=== PATIENT | female | born 1970 | race Caucasian/White ===

== ENCOUNTER 2017-06-11 11:47 | Emergency (ER) | payer MEDICAID ==
[~2017-06-11] VITALS: Ht 149.9 cm; Wt 70.0 kg
[~2017-06-11 11:47] MED LIST: CYCL-1 PO; FAMO-128 PO
[2017-06-11 13:27] VITALS: BP 111/65
== END 2017-06-11 14:03 | disposition home or self-care (01) ==
LOC: ER 11:47
DX: J06.9 Acute upper respiratory infection, unspecified (principal); E11.9 Type 2 diabetes mellitus without complications; Z88.1 Allergy status to other antibiotic agents
CPT/HCPCS: 99283

== ENCOUNTER 2018-07-08 11:34 | Emergency (ER) | payer MEDICAID ==
[~2018-07-08] VITALS: Ht 167.6 cm; Wt 72.7 kg
[2018-07-08] MEDS ORDERED: ketorolac tromethamine 15mg/ml inj. IM ONE (12:15)
[2018-07-08] MEDS ORDERED: triamcinolone acetonide 40mg/ml inj IM ONE (12:15)
[2018-07-08] MEDS ORDERED: GABA-530 PO (12:48)
[2018-07-08] MEDS ORDERED: TRAM50TA2 PO (12:48)
[2018-07-08] MEDS ORDERED: CELE-193 PO (12:48)
[2018-07-08 13:08] VITALS: BP 142/75
== END 2018-07-08 13:10 | disposition home or self-care (01) ==
LOC: ER 11:35
DX: M54.2 Cervicalgia (principal); M62.838 Other muscle spasm; E11.9 Type 2 diabetes mellitus without complications; Z98.890 Other specified postprocedural states; Z88.1 Allergy status to other antibiotic agents; Z79.2 Long term (current) use of antibiotics; Z79.899 Other long term (current) drug therapy
CPT/HCPCS: 96372; 99283; J1885; J3301

== ENCOUNTER 2020-01-31 15:45 | Emergency (ER) | payer MEDICAID ==
[~2020-01-31] VITALS: Ht 149.9 cm; Wt 73.0 kg
[~2020-01-31 15:45] MED LIST changes: +GABA-530 PO
[2020-01-31 16:01] VITALS: BP 132/83
[2020-01-31] MEDS ORDERED: PENI250T2 PO (16:56)
== END 2020-01-31 17:15 | disposition home or self-care (01) ==
LOC: ER 15:45
DX: K04.7 Periapical abscess without sinus (principal); E78.00 Pure hypercholesterolemia, unspecified; I10 Essential (primary) hypertension; E11.9 Type 2 diabetes mellitus without complications; Z88.1 Allergy status to other antibiotic agents; Z79.899 Other long term (current) drug therapy
CPT/HCPCS: 41800; 99284

== ENCOUNTER 2020-12-14 10:03 | Emergency (ER) | payer MEDICAID ==
[2020-12-14] MEDS ORDERED: ketorolac trometh. 30mg/ml inj. IM ONE (10:30)
[2020-12-14] MEDS ORDERED: ORPH100T2 PO (10:55)
[2020-12-14] MEDS ORDERED: HYDR-3972 PO (10:55)
== END 2020-12-14 11:18 | disposition home or self-care (01) ==
LOC: ER 10:03 → EEVIPCON 10:03 → ER 11:18
DX: M25.512 Pain in left shoulder (principal); M54.2 Cervicalgia; M79.10 Myalgia, unspecified site; E78.00 Pure hypercholesterolemia, unspecified; I10 Essential (primary) hypertension; E11.9 Type 2 diabetes mellitus without complications; Z88.1 Allergy status to other antibiotic agents; Z79.899 Other long term (current) drug therapy; X58.XXXA Exposure to other specified factors, initial encounter; Y93.89 Activity, other specified; Y92.89 Other specified places as the place of occurrence of the external cause; Y99.8 Other external cause status
CPT/HCPCS: 96372; 99283; J1885

== ENCOUNTER 2020-12-19 18:49 | Emergency (ER) | payer MEDICAID ==
[~2020-12-19] VITALS: Ht 149.9 cm; Wt 75.0 kg
[~2020-12-19 18:49] MED LIST changes: +HYDR-3972 PO; +ORPH100T2 PO
[2020-12-19] MEDS ORDERED: diazepam 5mg tablet PO ONE (19:30)
[2020-12-19] MEDS ORDERED: ketorolac tromethamine 15mg/ml inj. IM ONE (19:30)
[2020-12-19] MEDS ORDERED: DIAZ5TAB22 PO (20:03)
[2020-12-19] MEDS ORDERED: DEXA4TAB67 PO (20:03)
[2020-12-19 20:26] VITALS: BP 160/90
== END 2020-12-19 20:28 | disposition home or self-care (01) ==
LOC: ER 18:50 → EEVIPCON 18:50 → ER 20:28
DX: M54.2 Cervicalgia (principal); M25.512 Pain in left shoulder; E78.00 Pure hypercholesterolemia, unspecified; I10 Essential (primary) hypertension; E11.9 Type 2 diabetes mellitus without complications
CPT/HCPCS: 96372; 99283; J1885

== ENCOUNTER 2022-02-26 21:46 | Inpatient (IN) | payer MEDICAID, OTHER ==
[~2022-02-26] VITALS: Ht 142.2 cm; Wt 75.0 kg
[~2022-02-26 21:46] MED LIST changes: +DEXA4TAB67 PO; -HYDR-3972 PO
[2022-02-26 23:52] LABS: BASOPHILS # (AUTO) 0.1 X10'3 (0-0.2); BASOPHILS % (AUTO) 0.8 % (0-1); EOSINOPHILS # (AUTO) 0.3 X10'3 (0-0.9); EOSINOPHILS % (AUTO) 2.9 % (0-6); HEMATOCRIT 36.8 % (35.0-45.0); HEMOGLOBIN 12.4 g/dl (12.0-16.0); LYMPHOCYTES # (AUTO) 2.6 X10'3 (1.1-4.8); LYMPHOCYTES % (AUTO) 22.5 % (21-51); MEAN CORPUSCULAR HEMOGLOBIN 29.2 PG (27.0-31.0); MEAN CORPUSCULAR HGB CONC 33.8 g/dL (33.0-36.5); MEAN CORPUSCULAR VOLUME 86.3 FL (78-98); MEAN PLATELET VOLUME 7.5 FL (7.4-10.4); MONOCYTES # (AUTO) 0.9 X10'3 (0-0.9); MONOCYTES % (AUTO) 7.4 % (2-12); NEUTROPHILS # (AUTO) 7.6 X10'3 (1.8-7.7); NEUTROPHILS % (AUTO) 66.4 % (42-75); PLATELET COUNT 352 X10'3 (140-440); RED BLOOD COUNT 4.26 X10'6 (4.20-5.60); RED CELL DISTRIBUTION WIDTH 13.2 % (11.5-14.5); WHITE BLOOD COUNT 11.5 X10'3 (4.5-11.0)
[2022-02-27] VITALS (20 sets, daily range): BP systolic 116–171; BP diastolic 62–91
[2022-02-27] MEDS ORDERED: ondansetron/PF 4mg/2ml inj IM ONE
[2022-02-27 00:11] LABS: ALANINE AMINOTRANSFERASE 24 U/L (12-78); ALBUMIN 3.7 G/DL (3.4-5.0); ALKALINE PHOSPHATASE 78 IU/L (46-116); ANION GAP 5 (8-16); ASPARTATE AMINO TRANSFERASE 13 U/L (10-37); BILIRUBIN,TOTAL 0.4 MG/DL (0.1-1.0); BLOOD UREA NITROGEN 9 MG/DL (7-18); BUN/CREATININE RATIO 14.8 (6.6-38.0); CALCIUM 9.7 MG/DL (8.5-10.1); CHLORIDE 102 MMOL/L (99-107); CREATININE 0.61 MG/DL (0.40-0.90); GLUCOSE 196 MG/DL (70-104); LIPASE < 50 U/L (73-393); POTASSIUM 3.9 MMOL/L (3.5-5.1); SODIUM 137 MMOL/L (135-145); TOTAL CARBON DIOXIDE 29.6 MMOL/L (24-32); TOTAL PROTEIN 7.4 G/DL (6.4-8.2); eGFR > 90 ML/MIN
[2022-02-27] MEDS ORDERED: morphine 4 MG/ML inj SYRINge IV ONE ×2 (01:20)
[2022-02-27] MEDS ORDERED: piperacillin/tazo 3.375gm/50ml 50 ML IV ONE (01:30)
[2022-02-27] MEDS ORDERED: magnesium 4gm in 100ml NS 100 ML IV PRN (03:25)
[2022-02-27] MEDS ORDERED: ondansetron/PF 4mg/2ml inj IV PRN ×2 (03:25→11:25)
[2022-02-27] MEDS ORDERED: potassium Cl 20 mEq SR tablet PO PRN ×2 (03:25)
[2022-02-27] MEDS ORDERED: magnesium Cl slow-release 64mg tablet PO PRN (03:25)
[2022-02-27] MEDS ORDERED: HYDROcodone/acetaminophen 5mg/325mg tablet PO PRN ×2 (03:25→13:00)
[2022-02-27] MEDS ORDERED: acetaminophen 325mg tablet PO PRN ×2 (03:25)
[2022-02-27] MEDS ORDERED: potassium Cl 40MEQ/1/2NS 520ml 520 ML IV PRN (03:25)
[2022-02-27] MEDS: normal saline 1000ml 1,000 ML IV SCH ×3 (03:25→23:49)
[2022-02-27] MEDS ORDERED: morphine 2 MG/ML inj. syringe IV PRN ×2 (03:25→11:25)
[2022-02-27 03:44] LABS: URINE HCG NEGATIVE (NEG)
[2022-02-27 03:46] LABS: CLARITY,URINE CLEAR (Clear); COLOR,URINE STRAW (Yellow); GLUCOSE, URINE NEGATIVE (Neg); KETONES,URINE NEGATIVE (Neg); LEUKOCYTE ESTERASE ,URINE NEGATIVE (Neg); NITRITES, URINE NEGATIVE (Neg); OCCULT BLOOD,URINE TRACE-INTACT (Neg); PH,URINE 7.5 (4.8-8.0); PROTEIN,URINE NEGATIVE (Neg); UROBILINOGEN,URINE 0.2 E.U/dL (0.2-1.0)
[2022-02-27] MEDS ORDERED: MESSAGE TO PHARMACY PO ONE (03:50)
[2022-02-27] MEDS ORDERED: DEXTROSE 15 GM of carb/4 tabs (each vial/BOTTLE has 4 tablets) PO PRN ×2 (03:50)
[2022-02-27] MEDS ORDERED: insulin Lispro (HumaLOG) vial - multi-dose SQ SCH (03:50)
[2022-02-27] MEDS ORDERED: glucagon, human recombinant 1mg kit SUBCUT PRN (03:50)
[2022-02-27] MEDS ORDERED: dextrose 50%-water 50ml dispensing syringe IV PRN ×2 (03:50)
[2022-02-27 03:52] LABS: BACTERIA,URINE FEW /HPF (Neg); SQUAMOUS EPITHELIAL CELL,UR FEW /LPF (FEW); UA COLLECTION TYPE CLN CATCH MIDSTREAM; WBC,URINE NONE SEEN /HPF (0-4)
[2022-02-27] MEDS: HYDROcodone/acetaminophen 10/325mg tab PO PRN ×3 (04:31→15:42)
[2022-02-27] MEDS: piperacillin/tazo 3.375gm/50ml 50 ML IV SCH ×3 (07:56→23:50)
[2022-02-27] MEDS: heparin, porcine 5000 units/ml vial SQ SCH ×2 (07:57→20:19)
[2022-02-27] MEDS: morphine 2 MG/ML inj. syringe IV PRN ×3 (07:58→23:18)
[2022-02-27 08:43] LABS: CHOL/HDL RATIO 2.6 (0.00-4.99); CHOLESTEROL 124 MG/DL (0-200); HDL CHOLESTEROL 47 MG/DL (35-60); LDL CHOLESTEROL 65 MG/DL (50-100); TRIGLYCERIDES 50 MG/DL (20-135)
[2022-02-27] MEDS ORDERED: INDOCYANINE GREEN 25 MG/10 ML VIAL IV STA (10:17)
--- NOTE | 2022-02-27 10:33 | NUR ---
Patient in room ED 6. I have received report from LACE CUTTER and had the opportunity to ask questions and assume patient care.
[2022-02-27] MEDS ORDERED: LIDOcaine 1% 30ml preserv. free vial ONE (11:02)
--- NOTE | 2022-02-27 11:24 | NUR ---
PATIENT ARRIVED TO THE FLOOR STARTED PATIENT ON THE SURGICAL FLUID FOR OR, PATIENTS VITALS TAKEN AT THIS TIME, AND BLOOD GLUCOSE WAS ALSO TAKEN . ALL RESULTS AND RELEVANT INFORMATION WAS REPORTED TO THE MUSIC ENGRAVER AT THIS TIME.
[2022-02-27] MEDS ORDERED: acetaminophen 1,000mg/100ml IV 100 ML IV PRN (11:25)
[2022-02-27] MEDS ORDERED: hydrALAZINE 20mg/ml inj. IV PRN (11:25)
[2022-02-27] MEDS ORDERED: meperidine/PF 25mg/ml syringe IV PRN ×2 (11:25)
[2022-02-27] MEDS ORDERED: proCHLORperazine 10 MG/2 ml inj IV PRN (11:25)
[2022-02-27] MEDS ORDERED: ringers solution, lacted 1,000 ML IV SCH (11:25)
[2022-02-27] MEDS ORDERED: labetalol 20mg/4ml (5mg/ml) syringe IV PRN (11:25)
[2022-02-27] MEDS ORDERED: sevoflurane 250ml liquid IH ONE (11:47)
[2022-02-27] MEDS ORDERED: midazolam 1 mg/ML 2ml injection ONE (11:58)
[2022-02-27] MEDS ORDERED: fentaNYL /PF 50mcg/ml 5ml ampule ONE (12:01)
[2022-02-27] MEDS ORDERED: SITA100T15 PO (12:26)
[2022-02-27] MEDS ORDERED: BUPIVAcaine/PF 2.5 mg/ml (0.25%) 30ml vial IJ ONE (12:26)
[2022-02-27] MEDS ORDERED: METF-438 PO (12:26)
[2022-02-27] MEDS ORDERED: LISI5TAB22 PO (12:26)
[2022-02-27] MEDS ORDERED: ATOR40TA72 PO (12:26)
[2022-02-27] MEDS ORDERED: LIDOcaine 2% (20mg/ml) 5ml vial ONE (12:45)
[2022-02-27] MEDS ORDERED: dexamethasone sod phosphate 4mg/ml inj. ONE (12:45)
[2022-02-27] MEDS ORDERED: propofol inj 20 ML IV ONE (12:45)
[2022-02-27] MEDS ORDERED: rocuronium 10mg/ml inj IV ONE (12:45)
[2022-02-27] MEDS ORDERED: ondansetron/PF 4mg/2ml inj ONE (12:46)
[2022-02-27] MEDS ORDERED: glycopyrrolate 0.2mg/ml inj ONE (12:57)
[2022-02-27] MEDS ORDERED: neostigmine methylsulfate 1 MG/ML 10ml vial ONE (12:57)
[2022-02-27] MEDS ORDERED: naloxone 0.4 mg/ml inj IV PRN (13:00)
[2022-02-27] MEDS ORDERED: HYDROcodone/acetaminophen 10/325mg tab PO PRN (13:00)
--- NOTE | 2022-02-27 13:16 | NUR ---
Received from OR via HOSPITAL BED , accompanied by Anesthesiologist DR MELENDEZ and report given by Anesthesiolgist. PT PRESENTS WITH 20G RIGHT AC, ABD DRESSING CDI, VSS. Addendum: 02/27/22 at 1329 by Ofelia Hillman RN, RN Amended: Links added.
[2022-02-27] MEDS: meperidine/PF 25mg/ml syringe IV PRN ×3 (13:25→13:48)
--- NOTE | 2022-02-27 13:26 | NUR ---
Report called to receiving nurse EVIE RAMON. Transferred via HOSPITAL BED, TO ROOM 340B. BED IN LOW LOCKED POSITION, PT GIVEN CALL LIGHT AND HOOKED UP TO MONITOR. EVIE RAMON NOTIFIED BG 159. Belongings WERE LEFT IN PT ROOM 340B. Special Issues communicated to receiving nurse. Addendum: 02/27/22 at 1434 by Ofelia Hillman RN RN Amended: Links added.
[2022-02-27] MEDS: morphine 4 MG/ML inj SYRINge IV PRN ×2 (13:40→14:06)
--- NOTE | 2022-02-27 14:39 | NUR ---
Patient just arrived to floor after receiving report from Ofelia RAMON, patient made familiar with room and family is at bedside at this time. Reviewing orders at this time.
--- NOTE | 2022-02-27 18:05 | NUR ---
Problems reprioritized. Patient report given, questions answered & plan of care reviewed with Shakeel RAMON.
[2022-02-27] MEDS ORDERED: temazepam 15mg capsule PO PRN (21:00)
[2022-02-27] MEDS: insulin glargine (Lantus) pen - multi-dose SQ SCH (21:22)
[2022-02-28] MEDS ORDERED: morphine 2 MG/ML inj. syringe IV PRN (01:50)
[2022-02-28] MEDS: HYDROcodone/acetaminophen 10/325mg tab PO PRN (05:04)
[2022-02-28 05:57] LABS: BASOPHILS % (AUTO) 0.1 % (0-1); EOSINOPHILS % (AUTO) 0 % (0-6); HEMATOCRIT 35.7 % (35.0-45.0); HEMOGLOBIN 11.9 g/dl (12.0-16.0); LYMPHOCYTES # (AUTO) 1.4 X10'3 (1.1-4.8); LYMPHOCYTES % (AUTO) 10.3 % (21-51); MEAN CORPUSCULAR HEMOGLOBIN 28.9 PG (27.0-31.0); MEAN CORPUSCULAR HGB CONC 33.3 g/dL (33.0-36.5); MEAN CORPUSCULAR VOLUME 86.7 FL (78-98); MEAN PLATELET VOLUME 7.7 FL (7.4-10.4); MONOCYTES # (AUTO) 0.9 X10'3 (0-0.9); MONOCYTES % (AUTO) 6.6 % (2-12); NEUTROPHILS # (AUTO) 11.4 X10'3 (1.8-7.7); PLATELET COUNT 336 X10'3 (140-440); RED BLOOD COUNT 4.12 X10'6 (4.20-5.60); RED CELL DISTRIBUTION WIDTH 13.2 % (11.5-14.5); WHITE BLOOD COUNT 13.8 X10'3 (4.5-11.0)
[2022-02-28 06:21] LABS: ALANINE AMINOTRANSFERASE 47 U/L (12-78); ALBUMIN 3.2 G/DL (3.4-5.0); ALBUMIN/GLOBULIN RATIO 0.8 (1.1-1.5); ALKALINE PHOSPHATASE 70 IU/L (46-116); ANION GAP 8 (8-16); ASPARTATE AMINO TRANSFERASE 26 U/L (10-37); BILIRUBIN,TOTAL 0.7 MG/DL (0.1-1.0); BLOOD UREA NITROGEN 9 MG/DL (7-18); BUN/CREATININE RATIO 14.1 (6.6-38.0); CALCIUM 9.5 MG/DL (8.5-10.1); CHLORIDE 102 MMOL/L (99-107); CREATININE 0.64 MG/DL (0.40-0.90); GLUCOSE 169 MG/DL (70-104); POTASSIUM 3.6 MMOL/L (3.5-5.1); SODIUM 138 MMOL/L (135-145); TOTAL CARBON DIOXIDE 27.6 MMOL/L (24-32); eGFR > 90 ML/MIN
--- NOTE | 2022-02-28 06:44 | NUR ---
Problems reprioritized. Patient report given, questions answered & plan of care reviewed with Kwame. Addendum: 02/28/22 at 0644 by Dre Milian RN Amended: Links added.
[2022-02-28 07:19] VITALS: BP 128/75
[2022-02-28] MEDS: lisinopril 5mg tablet PO SCH (07:41)
[2022-02-28] MEDS: atorvastatin 20mg tablet PO SCH (07:41)
[2022-02-28] MEDS: piperacillin/tazo 3.375gm/50ml 50 ML IV SCH ×3 (07:42→23:44)
[2022-02-28] MEDS: heparin, porcine 5000 units/ml vial SQ SCH ×2 (07:42→20:17)
[2022-02-28] MEDS: morphine 2 MG/ML inj. syringe IV PRN (08:44)
[2022-02-28] MEDS: normal saline 1000ml 1,000 ML IV SCH ×2 (09:25→17:23)
--- NOTE | 2022-02-28 10:00 | NUR ---
Patient qualified on her blood glucose at 2100 12/. Patient normally takes metformin, so I will monitor until she qualifies during day day shift.
[2022-02-28 11:00] VITALS: BP 149/62
[2022-02-28] MEDS: HYDROmorphone 1 mg/ml syringe IV PRN ×2 (12:32→16:21)
--- NOTE | 2022-02-28 14:00 | NUR ---
Continue to monitor patient at this time and blood glucose if patient blood glucose is elevated over protocol numbers and will as needed.
--- NOTE | 2022-02-28 17:10 | NUR ---
After monitoring patient during shift patient reported that she has passed flatus.
[2022-02-28] MEDS ORDERED: oxyCODONE/APAP 5-325mg tablet PO PRN (18:00)
--- NOTE | 2022-02-28 18:27 | NUR ---
Problems reprioritized. Patient report given, questions answered & plan of care reviewed with Shakeel RAMON.
[2022-02-28 18:30] VITALS: BP 106/49
[2022-02-28] MEDS: oxyCODONE/APAP 5-325mg tablet PO PRN (20:17)
[2022-02-28] MEDS: insulin glargine (Lantus) pen - multi-dose SQ SCH (21:45)
[2022-02-28 22:00] VITALS: BP 110/70
[2022-03-01] MEDS: oxyCODONE/APAP 5-325mg tablet PO PRN ×4 (03:17→11:16)
[2022-03-01] MEDS: normal saline 1000ml 1,000 ML IV SCH (05:30)
[2022-03-01 06:00] VITALS: BP 103/56
[2022-03-01 06:03] LABS: BASOPHILS # (AUTO) 0.1 X10'3 (0-0.2); BASOPHILS % (AUTO) 0.7 % (0-1); EOSINOPHILS # (AUTO) 0.1 X10'3 (0-0.9); HEMATOCRIT 29.5 % (35.0-45.0); HEMOGLOBIN 9.9 g/dl (12.0-16.0); LYMPHOCYTES # (AUTO) 2.7 X10'3 (1.1-4.8); LYMPHOCYTES % (AUTO) 27.1 % (21-51); MEAN CORPUSCULAR HEMOGLOBIN 29.4 PG (27.0-31.0); MEAN CORPUSCULAR HGB CONC 33.7 g/dL (33.0-36.5); MEAN CORPUSCULAR VOLUME 87.4 FL (78-98); MONOCYTES % (AUTO) 9.8 % (2-12); NEUTROPHILS # (AUTO) 6.1 X10'3 (1.8-7.7); NEUTROPHILS % (AUTO) 61.4 % (42-75); PLATELET COUNT 277 X10'3 (140-440); RED BLOOD COUNT 3.37 X10'6 (4.20-5.60); RED CELL DISTRIBUTION WIDTH 13.6 % (11.5-14.5)
--- NOTE | 2022-03-01 06:23 | NUR ---
Problems reprioritized. Patient report given, questions answered & plan of care reviewed with ROBIN. Addendum: 03/01/22 at 0623 by Dre Milian RN Amended: Links added.
[2022-03-01 06:32] LABS: ALANINE AMINOTRANSFERASE 38 U/L (12-78); ALBUMIN 2.6 G/DL (3.4-5.0); ALBUMIN/GLOBULIN RATIO 0.8 (1.1-1.5); ALKALINE PHOSPHATASE 58 IU/L (46-116); ANION GAP 8 (8-16); ASPARTATE AMINO TRANSFERASE 20 U/L (10-37); BILIRUBIN,TOTAL 0.5 MG/DL (0.1-1.0); BLOOD UREA NITROGEN 12 MG/DL (7-18); BUN/CREATININE RATIO 20.3 (6.6-38.0); CALCIUM 8.6 MG/DL (8.5-10.1); CHLORIDE 107 MMOL/L (99-107); CREATININE 0.59 MG/DL (0.40-0.90); GLUCOSE 100 MG/DL (70-104); POTASSIUM 3.5 MMOL/L (3.5-5.1); SODIUM 142 MMOL/L (135-145); TOTAL CARBON DIOXIDE 26.9 MMOL/L (24-32); TOTAL PROTEIN 5.9 G/DL (6.4-8.2); eGFR > 90 ML/MIN
[2022-03-01] MEDS: atorvastatin 20mg tablet PO SCH (07:14)
[2022-03-01] MEDS: piperacillin/tazo 3.375gm/50ml 50 ML IV SCH (07:14)
[2022-03-01 07:19] LABS: HEMOGLOBIN A1C 7.3 % (4.5-6.2)
[2022-03-01 07:20] VITALS: BP_SYST 125
[2022-03-01] MEDS: lisinopril 5mg tablet PO SCH (07:20)
[2022-03-01] MEDS: heparin, porcine 5000 units/ml vial SQ SCH (07:20)
[2022-03-01] MEDS ORDERED: OXYC-145 PO (08:48)
== END 2022-03-01 11:35 | disposition home or self-care (01) | DRG 263 ==
LOC: ER 21:47 → EEVIPCON 21:47 → ED HOLD 02-27 03:36 → SUR 3N 02-27 11:05
PROVIDERS: ADMIT Internal Medicine; ATTEND Family Medicine
PROC: 8E0W4CZ Robotic Assisted Procedure of Trunk Region, Percutaneous Endoscopic Approach (ICD-10-PCS; 2022-02-27)
PROC: BF532Z0 Other Imaging of Gallbladder and Bile Ducts using Fluorescing Agent, Intraoperative (ICD-10-PCS; 2022-02-27)
PROC: 0FT44ZZ Resection of Gallbladder, Percutaneous Endoscopic Approach (ICD-10-PCS; principal; 2022-02-27 11:47)
DX: K80.00 Calculus of gallbladder with acute cholecystitis without obstruction (principal); E11.9 Type 2 diabetes mellitus without complications; Z20.822 Contact with and (suspected) exposure to COVID-19; E78.00 Pure hypercholesterolemia, unspecified; F17.210 Nicotine dependence, cigarettes, uncomplicated; I10 Essential (primary) hypertension; Z79.899 Other long term (current) drug therapy; Z98.891 History of uterine scar from previous surgery; Z88.8 Allergy status to other drugs, medicaments and biological substances
CPT/HCPCS: 36415; 76700; 80053; 80061; 81001; 81025; 82948; 83036; 83605; 83690; 84484; 85025; 87040; 87081; 87635; 97116; 97161; 99285; A4215; A4615; A4618; A7000; G0378; J0131; J1100; J1170; J1644; J1815; J2175; J2250; J2270; J2405; J2543; J2704; J2710; J3010; J3490; J7030; J7120

== ENCOUNTER 2024-05-03 10:30 | Emergency (ER) | payer BC, MEDICAID ==
[~2024-05-03] VITALS: Ht 149.9 cm; Wt 68.2 kg
[~2024-05-03 10:30] MED LIST changes: +ATOR40TA72 PO; -CYCL-1 PO; -DEXA4TAB67 PO; -FAMO-128 PO; -GABA-530 PO; +LISI5TAB22 PO; +METF-438 PO; -ORPH100T2 PO; +OXYC-145 PO; +SITA100T15 PO
[2024-05-03 11:10] LABS: BASOPHILS % (AUTO) 0.4 % (0-1); EOSINOPHILS # (AUTO) 0.3 X10'3 (0-0.9); EOSINOPHILS % (AUTO) 3.2 % (0-6); HEMATOCRIT 43.5 % (35.0-45.0); HEMOGLOBIN 14.5 g/dl (12.0-16.0); LYMPHOCYTES # (AUTO) 1.7 X10'3 (1.1-4.8); LYMPHOCYTES % (AUTO) 21.5 % (21-51); MEAN CORPUSCULAR HEMOGLOBIN 29.4 PG (27.0-31.0); MEAN CORPUSCULAR HGB CONC 33.4 g/dL (33.0-36.5); MEAN PLATELET VOLUME 7.8 FL (7.4-10.4); MONOCYTES # (AUTO) 0.7 X10'3 (0-0.9); MONOCYTES % (AUTO) 8.7 % (2-12); NEUTROPHILS # (AUTO) 5.3 X10'3 (1.8-7.7); NEUTROPHILS % (AUTO) 66.2 % (42-75); PLATELET COUNT 256 X10'3 (140-440); RED BLOOD COUNT 4.94 X10'6 (4.20-5.60); RED CELL DISTRIBUTION WIDTH 12.8 % (11.5-14.5)
[2024-05-03] MEDS: aspirin 81mg tab.chew PO ONE (11:10)
[2024-05-03 11:28] LABS: ANION GAP 4 (8-16); BLOOD UREA NITROGEN 14 MG/DL (7-18); BUN/CREATININE RATIO 19.4 (10.0-20.0); CALCIUM 9.3 MG/DL (8.5-10.1); CHLORIDE 98 MMOL/L (99-107); CREATININE 0.72 MG/DL (0.40-0.90); GLUCOSE 177 MG/DL (70-104); POTASSIUM 4.4 MMOL/L (3.5-5.1); SODIUM 132 MMOL/L (135-145); TOTAL CARBON DIOXIDE 29.6 MMOL/L (24-32); eCRCL 62 ML/MIN; eGFR 85 ML/MIN
[2024-05-03 13:22] VITALS: BP 90/52; PULSE 57; RESP 14; TEMP 98.3; O2SAT 100
== END 2024-05-03 13:30 | disposition home or self-care (01) ==
LOC: ER 10:31
DX: R07.89 Other chest pain (principal); M62.838 Other muscle spasm; E11.9 Type 2 diabetes mellitus without complications; I10 Essential (primary) hypertension; E78.00 Pure hypercholesterolemia, unspecified; Z88.1 Allergy status to other antibiotic agents; Z79.899 Other long term (current) drug therapy; Z79.84 Long term (current) use of oral hypoglycemic drugs; Z98.890 Other specified postprocedural states
CPT/HCPCS: 36415; 71045; 71046; 80048; 84484; 85025; 93005; 99285

== ENCOUNTER 2024-06-03 12:28 | Outpatient (CLI) | payer BC ==
[2024-06-03 12:51] LABS: BILIRUBIN,URINE NEGATIVE (Neg); CLARITY,URINE CLEAR (Clear); COLOR,URINE YELLOW (Yellow); GLUCOSE, URINE >=1000 mg/dl (Neg); KETONES,URINE NEGATIVE (Neg); LEUKOCYTE ESTERASE ,URINE NEGATIVE (Neg); NITRITES, URINE NEGATIVE (Neg); OCCULT BLOOD,URINE NEGATIVE (Neg); PROTEIN,URINE NEGATIVE (Neg); UROBILINOGEN,URINE 0.2 E.U/dL (0.2-1.0)
[2024-06-03 12:52] LABS: BASOPHILS # (AUTO) 0.1 X10'3 (0-0.2); BASOPHILS % (AUTO) 1.7 % (0-1); EOSINOPHILS # (AUTO) 0.8 X10'3 (0-0.9); EOSINOPHILS % (AUTO) 10.4 % (0-6); HEMOGLOBIN 14.7 g/dl (12.0-16.0); LYMPHOCYTES # (AUTO) 3.5 X10'3 (1.1-4.8); LYMPHOCYTES % (AUTO) 42.9 % (21-51); MEAN CORPUSCULAR HEMOGLOBIN 28.8 PG (27.0-31.0); MEAN CORPUSCULAR HGB CONC 32.8 g/dL (33.0-36.5); MEAN CORPUSCULAR VOLUME 87.9 FL (78-98); MEAN PLATELET VOLUME 7.6 FL (7.4-10.4); MONOCYTES # (AUTO) 0.6 X10'3 (0-0.9); MONOCYTES % (AUTO) 7.5 % (2-12); NEUTROPHILS % (AUTO) 37.5 % (42-75); PLATELET COUNT 342 X10'3 (140-440); RED BLOOD COUNT 5.12 X10'6 (4.20-5.60); RED CELL DISTRIBUTION WIDTH 12.6 % (11.5-14.5); UA COLLECTION TYPE NON-SPECIFIED; WHITE BLOOD COUNT 8.1 X10'3 (4.5-11.0)
[2024-06-03 12:58] LABS: BACTERIA,URINE FEW /HPF (Neg); MUCUS STRANDS FEW /LPF (Neg); RBC,URINE 0-2 /HPF (0-2); RENAL CELLS, URINE MODERATE /HPF; SQUAMOUS EPITHELIAL CELL,UR MANY /LPF (FEW); TRANSITIONAL EPI CELLS,URINE FEW /HPF; WBC,URINE 0-4 /HPF (0-4)
[2024-06-03 13:20] LABS: ALANINE AMINOTRANSFERASE 23 U/L (12-78); ALBUMIN/GLOBULIN RATIO 0.9 (1.1-1.5); ALKALINE PHOSPHATASE 128 IU/L (46-116); ANION GAP 7 (8-16); ASPARTATE AMINO TRANSFERASE 9 U/L (10-37); BILIRUBIN,TOTAL 0.3 MG/DL (0.1-1.0); BLOOD UREA NITROGEN 18 MG/DL (7-18); BUN/CREATININE RATIO 25.4 (10.0-20.0); CALCIUM 9.4 MG/DL (8.5-10.1); CHLORIDE 100 MMOL/L (99-107); CHOL/HDL RATIO 4.8 (0.00-4.99); CHOLESTEROL 208 MG/DL (0-200); CREATININE 0.71 MG/DL (0.40-0.90); GLUCOSE 138 MG/DL (70-104); HDL CHOLESTEROL 43 MG/DL (35-60); LDL CHOLESTEROL 123 MG/DL (50-100); MAGNESIUM 2.1 MG/DL (1.5-2.4); POTASSIUM 3.7 MMOL/L (3.5-5.1); SODIUM 139 MMOL/L (135-145); THYROID STIMULATING HORMONE 1.88 ulU/ml (0.34-4.50); TOTAL CARBON DIOXIDE 31.9 MMOL/L (24-32); TOTAL PROTEIN 8.4 G/DL (6.4-8.2); TRIGLYCERIDES 290 MG/DL (20-135); eGFR 86 ML/MIN
== END 2024-06-03 23:59 | disposition home or self-care (01) ==
LOC: RAD 12:28
PROVIDERS: ATTEND Nurse Practitioner Family
DX: M54.2 Cervicalgia (principal); Z00.01 Encounter for general adult medical examination with abnormal findings; I10 Essential (primary) hypertension; E11.65 Type 2 diabetes mellitus with hyperglycemia; J01.90 Acute sinusitis, unspecified; R25.2 Cramp and spasm
CPT/HCPCS: 36415; 72050; 80053; 80061; 81001; 82043; 82570; 83735; 84443; 85025

== ENCOUNTER 2024-06-24 08:27 | Outpatient (CLI) | payer BC | END 2024-06-24 23:59 | disposition home or self-care (01) | LOC: RAD 08:27 | PROVIDERS: ATTEND Nurse Practitioner Family | DX: R79.89 Other specified abnormal findings of blood chemistry (principal); Z90.49 Acquired absence of other specified parts of digestive tract | CPT/HCPCS: 76700 ==

== ENCOUNTER 2024-09-24 13:01 | Outpatient (CLI) | payer BC ==
[2024-09-24 13:42] LABS: MEAN PLATELET VOLUME 8.0 FL (7.4-10.4); RED CELL DISTRIBUTION WIDTH 12.8 % (11.5-14.5)
== END 2024-09-24 23:59 | disposition home or self-care (01) ==
LOC: LAB 13:01
PROVIDERS: ATTEND Nurse Practitioner Family
DX: Z78.0 Asymptomatic menopausal state (principal)
CPT/HCPCS: 36415; 82670; 82672; 83001; 83002; 84402; 84403; 84439; 84443; 85025